=== PATIENT | male | born 1980 ===

== ENCOUNTER 2024-08-08 20:43 | Inpatient (IN) | payer OTHER ==
[~2024-08-08] VITALS: Ht 185.4 cm; Wt 86.2 kg
[2024-08-08] MEDS ORDERED: levETIRAcetam 500 MG/5 ML VIAL IV ONE (21:31)
[2024-08-08] MEDS: levETIRAcetam IV 500 MG in IV DEXTROSE 5% 100 ML IV ONE (21:40)
[2024-08-08] MEDS: IV NORMAL SALINE 1000 ML BAG IV ONE (21:40)
[2024-08-08 21:48] LABS: BASOPHILS % (AUTO) 0.2 % (0.0-2.0); EOSINOPHILS % (AUTO) 0.1 % (0.0-7.0); HEMATOCRIT 39.3 % (36.7-47.1); HEMOGLOBIN 13.2 g/dL (12.5-16.3); LYMPHOCYTES # (AUTO) 0.5 K/uL (0.8-4.8); LYMPHOCYTES % (AUTO) 9.1 % (20.5-51.5); MEAN CORPUSCULAR HEMOGLOBIN 30.2 uug (23.8-33.4); MEAN CORPUSCULAR HGB CONC 34 g/dL (32.5-36.3); MEAN CORPUSCULAR VOLUME 89.6 fL (73.0-96.2); MONOCYTES # (AUTO) 0.9 K/uL (0.1-1.30); MONOCYTES % (AUTO) 15.6 % (0.0-11.0); NEUTROPHILS # (AUTO) 4.3 K/uL (1.8-8.9); PLATELET COUNT (AUTO) 176 K/uL (152-348); RED BLOOD CELL COUNT(AUTO) 4.38 MIL/uL (4.06-5.63); RED CELL DISTRIBUTION WIDTH 13.2 % (12.1-16.2); WHITE BLOOD COUNT (AUTO) 5.7 K/uL (3.6-10.2)
[2024-08-08 21:51] LABS: DIFFERENTIAL COMMENT 1
[2024-08-08 21:53] LABS: BASOPHILS % (MANUAL) 0 % (0-2); EOSINOPHILS % (MANUAL) 1 % (0-8); LYMPHOCYTES % (MANUAL) 12 % (20-40); MONOCYTES % (MANUAL) 12 % (2-10); NEUTROPHILS % (MANUAL) 75 % (42-75)
[2024-08-08 22:02] LABS: ETHANOL < 3 MG/DL (0-10)
[2024-08-08 22:08] LABS: CALCIUM 8.3 mg/dL (8.5-10.1); CARBON DIOXIDE 25 mmol/L (21-32); CHLORIDE 103 mmol/L (98-107); CREATININE 1.1 mg/dL (0.6-1.3); GLUCOSE 133 mg/dL (74-106); POTASSIUM 3.5 mmol/L (3.5-5.1); SODIUM SERUM 140 mmol/L (136-145); UREA NITROGEN, BLOOD 10 mg/dL (7-18)
[2024-08-08 22:16] LABS: ALANINE AMINOTRANSFERASE 27 U/L (16-63); ALBUMIN 3.9 g/dL (3.4-5.0); ALKALINE PHOSPHATASE 83 U/L (50-136); ASPARTATE AMINOTRANSFERASE 29 U/L (15-37); BILIRUBIN,DIRECT 0.2 mg/dL (0.0-0.2); BILIRUBIN,TOTAL 0.4 mg/dL (0.2-1.0); PHENOBARBITAL < 1.0 ug/mL (15.0-39.0); PHENYTOIN (DILANTIN) < 0.5 ug/mL (10.0-20.0); TOTAL PROTEIN, SERUM 7.4 g/dL (6.4-8.2); VALPROIC ACID < 3 ug/mL (50-100)
[2024-08-08] MEDS ORDERED: LORAZEPAM 2 MG/1 ML VIAL ONE (22:39)
[2024-08-08 23:17] LABS: *BILIRUBIN,URIN NEGATIVE (NEGATIVE); *CLARITY,URINE CLEAR (CLEAR); *COLOR,URINE YELLOW (YELLOW); *KETONES,URINE 2+ (NEGATIVE); *PROTEIN,URINE 1+ (NEGATIVE); LEUKOCYTE ESTERASE ,URINE NEGATIVE (NEGATIVE); NITRITE, URINE NEGATIVE (NEGATIVE); UGLUCOSE NEGATIVE (NEGATIVE)
[2024-08-08] MEDS ORDERED: LEVE1000 PO (23:24)
[2024-08-08 23:38] LABS: *BLOOD, URINE TRACE (NEGATIVE)
[2024-08-09 00:26] LABS: *AMPHETAMINE, URINE NEGATIVE (NEGATIVE); *BARBITURATE, URINE NEGATIVE (NEGATIVE); *BENZODIAZEPINE, URINE NEGATIVE (NEGATIVE); *CANNABINOID, URINE NEGATIVE (NEGATIVE); *COCCAINE, URINE NEGATIVE (NEGATIVE); *OPIATE, URINE NEGATIVE (NEGATIVE); *PHENCYCLIDINE SCREEN,URINE NEGATIVE (NEGATIVE); FENTANYL, URINE NEGATIVE (NEGATIVE); WBC,URINE NONE SEEN /HPF (0-3)
[2024-08-09 00:27] LABS: BACTERIA,URINE FEW /HPF (NONE SEEN); COARSE GRANULAR CASTS,URINE 0-3 /LPF; SQUAMOUS EPITHELIAL CELL,UR NONE SEEN /HPF (NONE SEEN); URIC ACID CRYSTALS,URINE MODERATE /HPF (NONE SEEN)
[2024-08-09] MEDS ORDERED: ACETAMINOPHEN 325 MG TABLET PO PRN (01:45)
[2024-08-09] MEDS ORDERED: MAGNESIUM HYDROXIDE 30 ML LIQUID UDC PO PRN (01:45)
[2024-08-09] MEDS ORDERED: IV NS 1000 ML 1,000 ML IV SCH (01:45)
[2024-08-09] MEDS ORDERED: ONDANSETRON 4 MG/2 ML VIAL IV PRN (01:45)
[2024-08-09] MEDS ORDERED: REMEDY ESSENTIAL ZINC PASTE 113 GM TP PRN (01:45)
[2024-08-09] MEDS ORDERED: levETIRAcetam 500 MG/5 ML VIAL IV ONE (01:56)
[2024-08-09] MEDS: levETIRAcetam IV 1,500 MG in IV DEXTROSE 5% 100 ML IV SCH (02:40)
[2024-08-09 07:37] VITALS: BP 127/69; TEMP 99.2; O2SAT 98
[2024-08-09] MEDS: PANTOPRAZOLE SODIUM 40 MG VIAL IV SCH (09:28)
[2024-08-09] MEDS: IV NS 1000 ML 1,000 ML IV PRN (09:28)
[2024-08-09] MEDS: levETIRAcetam IV 1,000 MG in IV DEXTROSE 5% 100 ML IV SCH (09:29)
[2024-08-09 11:17] VITALS: BP 100/70; TEMP 98.2; O2SAT 97
[2024-08-09] MEDS: LORAZEPAM 2 MG/1 ML VIAL IV PRN (11:47)
[2024-08-09 12:00] VITALS: BP 119/67; TEMP 97.6; O2SAT 97
[2024-08-09] MEDS ORDERED: PREG100C PO (13:13)
[2024-08-09] MEDS ORDERED: APIX5TAB PO (13:13)
[2024-08-09] MEDS ORDERED: ATOR40TA PO (13:13)
[2024-08-09] MEDS ORDERED: AMLO-212 PO (13:13)
[2024-08-09] MEDS ORDERED: LACO200T2 PO (13:13)
[2024-08-09 15:12] LABS: BASOPHILS % (AUTO) 0.4 % (0.0-2.0); HEMATOCRIT 38.5 % (36.7-47.1); HEMOGLOBIN 13.2 g/dL (12.5-16.3); LYMPHOCYTES # (AUTO) 1.4 K/uL (0.8-4.8); LYMPHOCYTES % (AUTO) 36.2 % (20.5-51.5); MEAN CORPUSCULAR HEMOGLOBIN 30.5 uug (23.8-33.4); MEAN CORPUSCULAR HGB CONC 34 g/dL (32.5-36.3); MEAN CORPUSCULAR VOLUME 89.2 fL (73.0-96.2); MONOCYTES # (AUTO) 0.9 K/uL (0.1-1.30); MONOCYTES % (AUTO) 22.8 % (0.0-11.0); NEUTROPHILS # (AUTO) 1.6 K/uL (1.8-8.9); NEUTROPHILS % (AUTO) 40.6 % (38.5-71.5); PLATELET COUNT (AUTO) 172 K/uL (152-348); RED BLOOD CELL COUNT(AUTO) 4.32 MIL/uL (4.06-5.63); RED CELL DISTRIBUTION WIDTH 13.8 % (12.1-16.2); WHITE BLOOD COUNT (AUTO) 3.9 K/uL (3.6-10.2)
[2024-08-09 15:17] LABS: DIFFERENTIAL COMMENT 1
[2024-08-09 15:34] LABS: CALCIUM 8.4 mg/dL (8.5-10.1); MAGNESIUM 2.1 mg/dL (1.8-2.4); PHOSPHOROUS 3.8 mg/dL (2.5-4.9); POTASSIUM 3.5 mmol/L (3.5-5.1)
[2024-08-09] MEDS: QUETIAPINE FUMARATE 25 MG TABLET PO ONE (15:40)
[2024-08-09 16:00] VITALS: BP 148/78; TEMP 97.8; O2SAT 97
[2024-08-09 16:28] LABS: BAND % (MANUAL) 1 % (0-10); LYMPHOCYTES % (MANUAL) 36 % (20-40); MONOCYTES % (MANUAL) 20 % (2-10); NEUTROPHILS % (MANUAL) 43 % (42-75); PLATELET ESTIMATE ADEQUATE
[2024-08-09] MEDS: PREGABALIN 100 MG CAPSULE PO SCH (18:50)
[2024-08-09] MEDS: APIXABAN 5 MG TABLET PO SCH (18:51)
[2024-08-09 19:25] VITALS: BP 124/88; TEMP 97.8; O2SAT 99
[2024-08-09] MEDS: ATORVASTATIN 40 MG TABLET PO SCH (20:24)
[2024-08-09] MEDS: LACOSAMIDE 50 MG TABLET PO SCH (20:24)
[2024-08-10 00:22] VITALS: BP 136/83; TEMP 98.9; O2SAT 98
[2024-08-10 04:28] VITALS: BP 146/90; TEMP 98; O2SAT 100
[2024-08-10] MEDS: PANTOPRAZOLE SODIUM 40 MG TABLET.DR PO SCH (06:46)
[2024-08-10 08:00] VITALS: BP 109/73; TEMP 97.6; O2SAT 97
[2024-08-10] MEDS: AMLODIPINE 5 MG TABLET PO SCH (08:38)
[2024-08-10 12:00] VITALS: BP 138/79; TEMP 97.6; O2SAT 96
[2024-08-10] MEDS ORDERED: levETIRAcetam 500 MG TABLET PO SCH (21:00)
== END 2024-08-10 15:45 | disposition home or self-care (01) | DRG 101 ==
LOC: ER 20:50 → TELE3 08-09 01:33
PROVIDERS: ATTEND Nurse Practitioner Acute Care
DX: G40.901 Epilepsy, unspecified, not intractable, with status epilepticus (principal); D68.59 Other primary thrombophilia; G62.9 Polyneuropathy, unspecified; E78.5 Hyperlipidemia, unspecified; Z78.1 Physical restraint status; I10 Essential (primary) hypertension; Z86.73 Personal history of transient ischemic attack (TIA), and cerebral infarction without residual deficits; Z79.899 Other long term (current) drug therapy; Z79.01 Long term (current) use of anticoagulants
CPT/HCPCS: 36415; 70030-TC; 70450; 71045; 80164; 80184; 83605; 83735; 84100; 85025; A4606; A4663; C1758; G0378; G0480; J1953; J2060; J2470; J7040